=== PATIENT | female | born 1925 | race Caucasian/White ===

== ENCOUNTER 2016-03-23 09:47 | Emergency (ER) | payer OTHER, MEDICARE ==
[~2016-03-23] VITALS: Ht 160 cm; Wt 40.9 kg
[~2016-03-23 09:47] MED LIST: AMLODIPINE BESYL5 MG; AMLODIPINE BESYL5 MG PO; ANTACID500 MG; ARTIFICIAL TEAR15 M1 BOTH EYES; ASPIR 8181 M1 PO; ASPIRIN E.C.81 M1 PO; CILOSTAZOL50 MG PO; DIOVAN HCT 31 TABLET PO; DIOVAN320 MG PO; DONEPEZIL HCL10 MG PO; ENABLEX15 MG PO; FLEXERIL10 MG PO; Flagyl PO; GLUCOPHAGE XR,500 MG PO; K-DUR10 MEQ PO; LEXAPRO10 MG PO; LOPRESSOR25 MG PO; Levaquin PO; MIRTAZAPINE7.5 MG PO; NORVASC10 MG PO; Norvasc PO; OCEAN NASAL 0.645 ML BOTH NARES; PEPCID AC20 MG PO; PLETAL50 MG PO; PRAVASTATIN SOD40 MG PO; Pletal PO; TOPROL XL50 MG PO; TRAMADOL HCL50 MG PO; TYLENOL EXTRA500 MG PO; TYLENOL REGULA325 MG PO; TYLENOL WITH C1 EACH PO; VALSARTAN320 MG PO; VALTREX1000 MG PO; VITAMIN B122500 MCG PO
[2016-03-23 13:41] VITALS: BP 157/80
== END 2016-03-23 13:47 ==
LOC: EME → EDBD 09:47 → EME 13:47
DX: S70.02XA Contusion of left hip, initial encounter (principal); I10 Essential (primary) hypertension; J44.9 Chronic obstructive pulmonary disease, unspecified; Z86.73 Personal history of transient ischemic attack (TIA), and cerebral infarction without residual deficits; W01.0XXA Fall on same level from slipping, tripping and stumbling without subsequent striking against object, initial encounter; Z88.2 Allergy status to sulfonamides; Z91.013 Allergy to seafood; Z88.1 Allergy status to other antibiotic agents; Z88.0 Allergy status to penicillin; Z91.041 Radiographic dye allergy status
CPT/HCPCS: 71010; 72192; 73502; 99281; 99285